=== PATIENT | male | born 1970 | race Caucasian/White ===

== ENCOUNTER → 2017-11-16 | Outpatient (CLI) | payer OTHER ==
--- NOTE | 2017-11-17 16:27 | MR ---
EXAMINATION TYPE: MR shoulder RT wo con DATE OF EXAM: 11/16/2017 COMPARISON: NONE HISTORY: No prior MR, right shoulder pain for about 1 year with limited ROM, no trauma TECHNIQUE: Multiplanar, multisequence imaging of the right shoulder is performed without contrast. FINDINGS: There is motion on the exam. Rotator Cuff: Abnormal increased signal present at the insertion of the rotator cuff is compatible wi th partial full-thickness tear, the tendon appears attenuated. Localized fluid signal present at the insertion of the rotator cuff tendon, tingling shows abnormal thickening and increased signal, local geode present in the humeral head. Acromioclavicular Joint: Hypertrophic change causes mass effect on the musculotendinous junction of s upraspinatus. Glenohumeral Joint: Intact. Labrum: The labrum appears grossly intact given limitation of non-arthrogram study. Biceps Tendon: There is fluid signal coursing along the long head of biceps tendon, consider tenosyno vitis. Bone marrow signal: No focal abnormal marrow signal is appreciated. Other: There is a small joint effusion. Fluid signal present in the subacromial subdeltoid bursa. Mya pect a distal acromial spur. IMPRESSION: Correlate for impingement, findings suggest partial full-thickness tear, tendinosis, rotator cuff ten don is attenuated possibly brain. Additional findings above. Motion on the exam.
== END | disposition home or self-care (01) ==
LOC: RADMRIMAIN 18:33
PROVIDERS: ATTEND Orthopaedic Surgery
DX: M25.511 Pain in right shoulder (principal)

== ENCOUNTER → 2020-08-29 | Outpatient (CLI) | payer OTHER ==
--- NOTE | 2020-08-30 00:14 | MR ---
EXAMINATION TYPE: MR knee RT wo con DATE OF EXAM: 08/29/2020 COMPARISON: None HISTORY: Right knee pain/swelling, S/P fall 3 days ago Multiplanar multiecho imaging of the right knee was performed without contrast. The anterior and posterior cruciate ligaments are intact. There is knee joint effusion. There is abno rmal increased signal in the posterior horn medial meniscus extending to the articular surface superi tyron and inferiorly. On the coronal images there is a small vertical tear through the lateral aspect of the lateral meniscus. There is increased signal in the base of the tibial spines consistent with degenerative cyst formatio n and bone bruise. The collateral ligaments appear intact. There is no evidence of a fracture. IMPRESSION: Moderate joint effusion. Complex tear of the posterior horn of the medial meniscus. Small vertical tear of the lateral meniscus. No evidence of ligamentous tear.
== END | disposition home or self-care (01) ==
LOC: RADMRIMAIN 18:59
PROVIDERS: ATTEND Physician Assistant
DX: M25.461 Effusion, right knee (principal); S83.241A Other tear of medial meniscus, current injury, right knee, initial encounter; S83.281A Other tear of lateral meniscus, current injury, right knee, initial encounter

== ENCOUNTER → 2021-02-25 | Outpatient (CLI) | payer OTHER ==
--- NOTE | 2021-02-25 10:03 | MR ---
EXAMINATION TYPE: MR knee LT wo con DATE OF EXAM: 02/25/2021 COMPARISON: None. HISTORY: Pain L knee, effusion, and medial meniscal tear. TECHNIQUE: Multiplanar, multisequence imaging of the left knee is performed without IV contrast. FINDINGS: MEDIAL MENISCUS: Oblique signal posterior horn extends to central body and inferior articular surface . LATERAL MENISCUS: Anterior and posterior horns are intact without tear. CRUCIATE LIGAMENTS: The posterior cruciate ligaments is intact. ACL shows increased signal and thinni ng of fibers. COLLATERAL LIGAMENTS: The medial collateral ligament and lateral collateral ligament complex are inta ct and unremarkable. EXTENSOR MECHANISM: Visualized quadriceps and patellar tendons are intact. EFFUSION: Small suprapatellar joint effusion. POPLITEAL CYST: Small popliteal/hart cyst. TRICOMPARTMENT SPACES: Moderate to severe patellofemoral compartment narrowing. Mild to moderate spu rring in tricompartment joint spaces. 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 BONE MARROW SIGNAL: No focal abnormal marrow signal is appreciated. OTHER: No additional significant abnormality is appreciated. IMPRESSION: 1. Oblique full thickness tear posterior horn of medial meniscus. 2. 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 3. Partial tearing/tendinosis of the anterior cruciate ligament. 4. Small suprapatellar joint effusion. 5. Small popliteal cyst.
== END | disposition home or self-care (01) ==
LOC: RADMRIMAIN 07:35
PROVIDERS: ATTEND Orthopaedic Surgery Sports Medicine
DX: M23.322 Other meniscus derangements, posterior horn of medial meniscus, left knee (principal); M17.12 Unilateral primary osteoarthritis, left knee; S83.512A Sprain of anterior cruciate ligament of left knee, initial encounter; M25.462 Effusion, left knee; M71.22 Synovial cyst of popliteal space [Baker], left knee